=== PATIENT | male | born 1995 | race American Indian/Alaskan Native ===

== ENCOUNTER 2019-04-25 19:38 | Emergency (ER) | payer BC ==
--- NOTE | 2019-04-25 20:05 | Emergency Department Report ---
Blank Doc - Documentation Documentation: This is a 23-year-old male that presents with aggressive behavior. Denies any SI/HI. This initial assessment/diagnostic orders/clinical plan/treatment(s) is/are subject to change based on patient's health status, clinical progression and re- assessment by fellow clinical providers in the ED. Further treatment and workup at subsequent clinical providers discretion. Patient/guardians urged not to elope from the ED as their condition may be serious if not clinically assessed and managed. Initial orders include: 1- Patient sent to MAIN ED for further evaluation and treatment 2- web editor was notified to have patient be brought back [facility]. 3- RN was notified to keep patient as close range and observation until room available
[2019-04-25 20:21] LABS: Basophils % (Auto) 0.5 % (0.0-1.8); Eosinophils # (Auto) 0.1 K/mm3 (0.0-0.4); Eosinophils % (Auto) 3.5 % (0.0-4.3); Hematocrit 42.7 % (35.5-45.6); Hemoglobin 14.2 gm/dl (11.8-15.2); Lymphocytes # (Auto) 1.4 K/mm3 (1.2-5.4); Lymphocytes % (Auto) 36.1 % (13.4-35.0); Mean Corpuscular HGB Conc 33 % (32-34); Mean Corpuscular Volume 81 fl (84-94); Monocytes # (Auto) 0.3 K/mm3 (0.0-0.8); Monocytes % (Auto) 8.7 % (0.0-7.3); Platelet Count 208 K/mm3 (140-440); Red Blood Count 5.25 M/mm3 (3.65-5.03); Red Cell Distribution Width 13.7 % (13.2-15.2)
[2019-04-25 20:48] LABS: Alanine Aminotransferase 8 units/L (7-56); Albumin 4.9 g/dL (3.9-5); BUN/Creatinine Ratio 13; Blood Urea Nitrogen 13 mg/dL (9-20); Calcium 9.3 mg/dL (8.4-10.2); Hemolysis Index 7
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
[2019-04-25 22:32] LABS: Amphetamine Screen,Urine PRESUMPTIVE NEGATIVE; Benzodiazepines Screen,Urine PRESUMPTIVE NEGATIVE; Cannabinoid Screen,Urine PRESUMPTIVE NEGATIVE; Cocaine Screen,Urine PRESUMPTIVE NEGATIVE; Methadone Screen,Urine PRESUMPTIVE NEGATIVE; Opiate Screen,Urine PRESUMPTIVE NEGATIVE
[2019-04-25 22:33] LABS: Bacteria,Urine 1+ /HPF (Negative); Bilirubin,Urine NEG (Negative); Blood,Urine NEG (Negative); Color,Urine Yellow (Yellow); Mucus,Urine 3+ /HPF
[2019-04-26] MEDS: ZIPRASIDONE MESYLATE 20 MG VIAL IM ONE (13:35)
[2019-04-26] MEDS ORDERED: WATER FOR INJ Sterile (PF) 10 ML ONE (13:38)
[2019-04-26 14:12] VITALS: BP 132/81
== END 2019-04-26 17:14 ==
LOC: EEVIPCON 19:38 → ED 19:38
DX: F23 Brief psychotic disorder (principal); Z91.010 Allergy to peanuts
CPT/HCPCS: 36415; 80053; 80307; 81001; 85025; 96372; 99285; J3486; 80320; G0480

== ENCOUNTER 2021-08-07 22:25 | Emergency (ER) | payer BC ==
[2021-08-07] MEDS ORDERED: ZIPRASIDONE MESYLATE 20 MG VIAL IM ONE (22:52)
[2021-08-07 23:24] LABS: Hematocrit 45.1 % (35.5-45.6); Hemoglobin 14.9 gm/dl (11.8-15.2); Mean Corpuscular HGB Conc 33 % (32-34); Mean Corpuscular Volume 82 fl (84-94); Platelet Count 220 K/mm3 (140-440); Red Blood Count 5.52 M/mm3 (3.65-5.03); Red Cell Distribution Width 13.6 % (13.2-15.2)
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
[2021-08-07 23:37] LABS: Alanine Aminotransferase 15 units/L (7-56); Albumin 4.8 g/dL (3.9-5); BUN/Creatinine Ratio 16; Blood Urea Nitrogen 16 mg/dL (9-20); Calcium 9.8 mg/dL (8.4-10.2); Hemolysis Index 9
[2021-08-07] MEDS ORDERED: ONDANSETRON 4 MG/2 ML INJ IM ONE (23:44)
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
[2021-08-08] MEDS ORDERED: ZIPRASIDONE MESYLATE 20 MG VIAL IM PRN (10:17)
[2021-08-08] MEDS: risperiDONE 1 MG TAB PO SCH ×2 (10:51→21:48)
--- NOTE | 2021-08-08 11:30 | Event Note ---
Date: 08/08/21 The patient has been calm and nonthreatening. There are no events with him overnight and is been clinically stable. The patient is alert active and oriented x3 and making good eye contact. The mood is euthymic with congruent affect. The patient does not seem under the influence of any psychoactive substances. The thought pattern is relevant and coherent. The patient denies suicidal ideations. We will continue to follow.
[2021-08-08 13:32] LABS: Bilirubin,Urine NEG (Negative); Blood,Urine NEG (Negative); Color,Urine Yellow (Yellow); Protein,Urine <15 mg/dL mg/dL (Negative); Urobilinogen,Urine < 2.0 mg/dL (<2.0); WBC,Urine < 1.0 /HPF (0.0-6.0)
[2021-08-08 13:43] LABS: Amphetamine Screen,Urine Negative; Benzodiazepines Screen,Urine Negative; Cocaine Screen,Urine Negative; Methadone Screen,Urine Negative; Opiate Screen,Urine Negative
[2021-08-08 14:55] LABS: Cannabinoid Screen,Urine Positive
[2021-08-09] MEDS: risperiDONE 1 MG TAB PO SCH ×2 (10:19→21:38)
--- NOTE | 2021-08-09 10:25 | Event Note ---
Date: 08/09/21 The patient was evaluated in the emergency department for symptoms described in the history of present illness. He/she was evaluated in the context of the global COVID-19 pandemic, which necessitated consideration that the patient might be at risk for infection with the virus that causes COVID-19. Institutional protocols and algorithms that pertain to the evaluation of patients at risk for COVID-19 are in a state of rapid change based on information released by regulatory bodies including the CDC and federal and state organizations. These policies and algorithms were followed during the patient's care in the emergency department. Please note that these policies, procedures and recommendations changed on a rapid basis. Laboratory studies, vital signs, nursing documentation, ER documentation, and psychiatric documentation are reviewed and appreciated. Nursing team reports no acute events this morning or concerns. The patient is awake and laying on side, and in no acute distress. The patient was deemed medically suitable for psychiatric disposition and placement during his initial ER evaluation. The patient continues to remain medically suitable for psychiatric placement and disposition. He is currently pending psychiatric placement. Vital Signs 08/07/21 08/08/21 08/08/21 22:51 12:59 19:00 Temperature 98.1 F 98.0 F Pulse Rate 92 H 80 Respiratory 16 18 Rate Blood Pressure 130/90 Blood Pressure 125/88 [Left] O2 Sat by Pulse 98 99 98 Oximetry
--- NOTE | 2021-08-09 10:25 | Progress Note ---
Subjective - Reason for Consult Consult date: 08/09/21 Reason for consult: Psychosis - Chief Complaint Chief complaint: The patient was seen this morning. He continues to present with delusions " I feel like there is a computer in my body." REVIEW OF SYSTEMS Constitutional: Negative for weight loss ENT: Negative for stridor Respiratory: Negative for cough or hemoptysis All other systems reviewed and are negative MENTAL STATUS EXAMINATION General Appearance and Behavior: Age appropriate, wearing appropriate clothes, cooperative, polite with questioning, good eye contact, calm, polite Cooperation: cooperative Psychomotor Behavior: Psychomotor normal Mood: calm Affect and affective range: Congruent with stated mood Thought Process: Goal directed Thought Content:Delusional Speech: Normal volume, Regular rate and rhythm Suicidal Ideation: Denies Homicidal Ideation: Denies Hallucination: Denies Delusions: paranoid Impulse Control: limited Insight and Judgment: Limited Memory: intact Attention: attentive Orientation: Alert and oriented Diagnoses: Schizophrenia Treatment Plan 1013 Continue home meds Risperidone 3mg po BID PSYCHOTHERAPY: Supportive psychotherapy provided MEDICAL: Per primary team DELIRIUM PRECAUTIONS: Please re-orient patient frequently, keep lights on during the day, and minimize benzodiazepines and opiates as these medications could worsen patient's confusion. BACTERIOLOGIST DAIRY: Per medical team DISPOSITION: Recommend acute psychiatric inpatient treatment. Will follow. Thank you for the consult. Case staffed with Dr. Burnett Medications and Allergies Mental Status Exam - Vital signs Last Vital Signs Temp 98.0 F 08/08/21 19:00 Pulse 80 08/08/21 19:00 Resp 18 08/08/21 19:00 BP 125/88 08/08/21 19:00 Pulse Ox 98 08/08/21 19:00
--- NOTE | 2021-08-10 10:48 | Progress Note ---
Subjective - Reason for Consult Consult date: 08/10/21 Reason for consult: Mental health evaluation - Chief Complaint Chief complaint: The patient was seen this morning. He continues to be disorganized. REVIEW OF SYSTEMS Constitutional: Negative for weight loss ENT: Negative for stridor Respiratory: Negative for cough or hemoptysis All other systems reviewed and are negative MENTAL STATUS EXAMINATION General Appearance and Behavior: Age appropriate, wearing appropriate clothes, cooperative, polite with questioning, good eye contact, calm, polite Cooperation: cooperative Psychomotor Behavior: Psychomotor normal Mood: calm Affect and affective range: Congruent with stated mood Thought Process: Goal directed Thought Content:Delusional Speech: Normal volume, Regular rate and rhythm Suicidal Ideation: Denies Homicidal Ideation: Denies Hallucination: Denies Delusions: paranoid Impulse Control: limited Insight and Judgment: Limited Memory: intact Attention: attentive Orientation: Alert and oriented Diagnoses: Schizophrenia Treatment Plan 1013 Continue home meds Risperidone 3mg po BID Depakote 125mg po BID PSYCHOTHERAPY: Supportive psychotherapy provided MEDICAL: Per primary team DELIRIUM PRECAUTIONS: Please re-orient patient frequently, keep lights on during the day, and minimize benzodiazepines and opiates as these medications could worsen patient's confusion. CATH LAB RADIOLOGICAL TECHNOLOGIST: Per medical team DISPOSITION: Recommend acute psychiatric inpatient treatment. Will follow. Thank you for the consult. Case staffed with Dr. Burnett Medications and Allergies Mental Status Exam - Vital signs Last Vital Signs Temp 97.1 F L 08/09/21 10:46 Pulse 92 H 08/10/21 08:34 Resp 14 08/09/21 10:46 BP 109/64 08/10/21 08:34 Pulse Ox 97 08/10/21 08:30
[2021-08-10] MEDS ORDERED: DIVALPROEX DR 125 MG TAB PO SCH (11:00)
--- NOTE | 2021-08-10 11:34 | Event Note ---
Date: 08/10/21 vss, no distress , no events overnight medically cleared , awaiting transfer to [facility] facility
[2021-08-10] MEDS: risperiDONE 1 MG TAB PO SCH (11:53)
--- NOTE | 2021-08-11 12:31 | Progress Note ---
Subjective - Reason for Consult Consult date: 08/11/21 Reason for consult: mental health evaluation - Chief Complaint Chief complaint: The patient was seen this morning. The patient is calm, alert and oriented x3. The patient reports doing well. He presents with appropriate affect. He denies any current suicidal/homicidal ideation and denies hallucinations. REVIEW OF SYSTEMS Constitutional: Negative for weight loss ENT: Negative for stridor Respiratory: Negative for cough or hemoptysis All other systems reviewed and are negative MENTAL STATUS EXAMINATION General Appearance and Behavior: Age appropriate, wearing appropriate clothes, cooperative, polite with questioning, good eye contact, calm, polite Cooperation: cooperative Psychomotor Behavior: Psychomotor normal Mood: calm Affect and affective range: Congruent with stated mood Thought Process: Goal directed Thought Content:Reality oriented Speech: Normal volume, Regular rate and rhythm Suicidal Ideation: Denies Homicidal Ideation: Denies Hallucination: Denies Delusions: None Impulse Control: limited Insight and Judgment: Limited Memory: intact Attention: attentive Orientation: Alert and oriented Diagnoses: Schizophrenia Treatment Plan DC 1013 Continue home meds Risperidone 2mg po BID Depakote 125mg po BID PSYCHOTHERAPY: Supportive psychotherapy provided MEDICAL: Per primary team DELIRIUM PRECAUTIONS: Please re-orient patient frequently, keep lights on during the day, and minimize benzodiazepines and opiates as these medications could worsen patient's confusion. MATH TEACHER: Per medical team DISPOSITION: Do not recommend acute psychiatric inpatient treatment. Department Chairperson will provide patient with outpatient resources. Will sign off. Thank you for the consult. Case staffed with Dr. Burnett Medications and Allergies Mental Status Exam - Vital signs Last Vital Signs Temp 97.1 F L 08/09/21 10:46 Pulse 92 H 08/10/21 08:34 Resp 14 08/09/21 10:46 BP 109/64 08/10/21 08:34 Pulse Ox 97 08/10/21 08:30
--- NOTE | 2021-08-11 17:01 | Event Note ---
25-year-old male Cleared by psych for discharge with discontinuation of 1013. Meds prescribed by mental health. Follow-up provided
[2021-08-11 17:46] VITALS: BP 122/88
== END 2021-08-11 17:31 | disposition home or self-care (01) ==
LOC: EEVIPCON 22:25 → ED 22:25
DX: F23 Brief psychotic disorder (principal); Z91.010 Allergy to peanuts; F31.9 Bipolar disorder, unspecified; Z20.822 Contact with and (suspected) exposure to COVID-19; Z79.899 Other long term (current) drug therapy
CPT/HCPCS: 36415; 80053; 80307; 81001; 84443; 85025; 96372; 99284; J2405; J3486; U0003; 80320; G0480